=== PATIENT | female | born 1940 | race Caucasian/White ===

== ENCOUNTER 2016-11-12 08:35 | Day surgery (SDC) | payer MEDICARE, BC ==
--- NOTE | ~2016-11-12 | EGD ---
EGD REPORT [facility] [address] [place]. [address] NAME: UNA MAK : [birth year] STATUS : REG [facility]#: [id number] AGE: 75 ADM/REG DATE : 11/12/16 MR#: [id number] REPORT SERV DATE: 11/12/16 DICTATED BY: JADE DUGAN DATE: 11/12/16 REPORT STATUS : Draft TRANSCRIBED BY: [facility] DATE: 11/12/16 Endoscopy Center Patient Name: Una Mak Date of : 1940 Attending MD: JADE DUGAN MD Procedure Date No Time: 11/12/2016 Procedure: Colonoscopy Indications: Family history of colon cancer Referring MD: TERRENCE YANES Medicines: as per anesthesia Complications: No immediate complications. Procedure: Pre-Anesthesia Assessment: - ASA Grade Assessment: II - A patient with mild systemic disease. After I obtained informed consent, the scope was passed under direct vision. Throughout the procedure, the patient's blood pressure, pulse, and oxygen saturations were monitored continuously. The PCF [id number] was introduced through the anus and advanced to the cecum, identified by appendiceal orifice and ileocecal valve. The colonoscopy was somewhat difficult due to restricted mobility of the colon, significant looping and a tortuous colon. The patient tolerated the procedure. The quality of the bowel preparation was adequate to identify polyps. Findings: The perianal and digital rectal examinations were normal. Internal hemorrhoids were found during endoscopy and were mild. Impression: - Internal hemorrhoids. Recommendation: - Continue present medications. Procedure Code(s): --- Professional --- 53037, Colonoscopy, flexible, proximal to splenic flexure; diagnostic, with or without collection of specimen(s) by brushing or washing, with or without colon decompression (separate procedure) Diagnosis Code(s): --- Professional --- K64.8, Other hemorrhoids Z80.0, Family history of malignant neoplasm of digestive organs EGD REPORT [facility] [address] [facility] [place]. [address] NAME: UNA MAK : 40 STATUS : REG [facility]#: [id number] AGE: 75 ADM/REG DATE : 11/12/16 MR#: [id number] REPORT SERV DATE: 11/12/16 DICTATED BY: JADE DUGAN. DATE: 11/12/16 REPORT STATUS : Draft TRANSCRIBED BY: [employer] DATE: 11/12/16 CPT copyright 2013 [employer]. All rights reserved. The codes documented in this report are preliminary and upon stitcher hand review may be revised to meet current compliance requirements. JADE DUGAN MD 11/12/2016 10:31 AM This report has been signed electronically. Number of Addenda: 0 Note Initiated On: 11/12/2016 10:02 AM Scope Withdrawal Time 0 hours 6 minutes 10 seconds [address] [facility] [place] [address]
[~2016-11-12 08:35] MED LIST: ACET500CAP PO; AMOXIL500 MG PO; ASAB PO; AUG500 PO; BENEFIBE6 PO; CALCIUM W/VIT D PO; CITRACAL PO; CITRUCELSF; COZAAR100 MG PO; CRANBERRY1 TAB OR; Cranberry PO; DIOV80 PO; DITRO5 PO; ERYTHROMYCIN O3.5 G1 OPH; FISH OIL PO; FISH-EPA1000 MG PO; GAS-X80 MG PO; GLUCCHONDR PO; HARD NAILS PO; MACRO50B PO; MIRALAX POWDER1 PKT PO; MULTIPLE VIT PO; NAFTIN TOP; NASAL MOIST0.65 % NAS; NORITATE1% TOP; PEP20 PO; PRAVAC PO; PREV30 PO; PROLOP100 PO; PVC V; RECLAST IV; SYN.025B PO; SYSTANE OP; SYSTANE OPH; ULTRAM50 PO; VOLTAREN1 % TOP; ZOCOR20 PO; [UNRECOGNIZED DRUG - OTHER]
== END 2016-11-12 23:59 | disposition home or self-care (01) ==
LOC: DMU 08:35
PROVIDERS: Internal Medicine Gastroenterology
PROC: 0DJD8ZZ Inspection of Lower Intestinal Tract, Via Natural or Artificial Opening Endoscopic (ICD-10-PCS; principal; 2016-11-12 10:00)
DX: Z12.11 Encounter for screening for malignant neoplasm of colon (principal); K64.8 Other hemorrhoids; Z80.0 Family history of malignant neoplasm of digestive organs; E03.9 Hypothyroidism, unspecified; I10 Essential (primary) hypertension; L71.9 Rosacea, unspecified; K31.84 Gastroparesis; Z88.8 Allergy status to other drugs, medicaments and biological substances; Z87.891 Personal history of nicotine dependence; Z98.41 Cataract extraction status, right eye; Z98.42 Cataract extraction status, left eye; Z96.1 Presence of intraocular lens; E78.00 Pure hypercholesterolemia, unspecified; Z98.890 Other specified postprocedural states; Z90.89 Acquired absence of other organs; Z79.899 Other long term (current) drug therapy; Z79.891 Long term (current) use of opiate analgesic; Z79.82 Long term (current) use of aspirin